=== PATIENT | female | born 1975 | race Caucasian/White ===

== ENCOUNTER 2020-08-30 09:05 | Inpatient (IN) | payer OTHER, MEDICARE ==
[2020-08-30] MEDS ORDERED: Tranexamic Acid 1,000 MG/10 ML VIAL ONE (09:20)
[2020-08-30] MEDS ORDERED: Boostrix 0.5 ML (Tdap) VIAL ONE (09:26)
[2020-08-30] MEDS ORDERED: Calcium Chloride 1 GM/10 ML Abboject SYRINGE ONE ×2 (09:40→09:57)
[2020-08-30] MEDS ORDERED: Fentanyl 100 MCG/2 ML VIAL ONE ×2 (09:56)
[2020-08-30] MEDS ORDERED: Midazolam HCl 5 mg/5 ml Vial ONE (09:56)
[2020-08-30] MEDS ORDERED: Phenylephrine 10 MG/ML VIAL ONE (09:57)
[2020-08-30] MEDS ORDERED: Ketamine 50 MG/ML (10ML VIAL) ONE (09:57)
[2020-08-30] MEDS ORDERED: Albumin 5% 0 ML ONE ×2 (09:57→09:58)
[2020-08-30] MEDS ORDERED: Sodium Bicarb 50 MEQ/50 ML Abboject 8.4% SYRINGE ONE ×2 (09:57→09:59)
[2020-08-30] MEDS ORDERED: Norepinephrine 4 MG/4 ML VIAL ONE (09:59)
[2020-08-30] MEDS ORDERED: Dextrose 5% in Water 1,000 ML IV PRN (10:06)
[2020-08-30] MEDS ORDERED: HumaLOG 300 UNITS/3 ML VIAL SC PRN (10:06)
[2020-08-30] MEDS ORDERED: Dextrose 50% Abboject 50 ML SYRINGE SLOW IVP PRN (10:06)
[2020-08-30] MEDS ORDERED: Rib Fracture Protocol IV SCH (10:15)
[2020-08-30 10:16] LABS: BHCG - Serum Negative (NEGATIVE); Pregs Control Background? CLEAR/WHITE (CLR/WHITE); Pregs Control Bar Appear? YES (CONTROL BAR)
[2020-08-30 10:21] LABS: Bacteria/HPF None Seen HPF (None Seen); Bilirubin Negative (Negative); Blood, Urine 3+ (Negative); Calcium Oxalate Crystals Rare HPF (None Seen); Clarity Turbid (Clear); Glucose, Urine (Dipstick) Normal (Negative); Ketone, Urine Negative (Negative); Leukocyte 75 Leu/uL (Negative); Nitrite Negative (Negative); Protein, Urine (Dipstick) 70 mg/dL (Neg-Trace); RBC/HPF Greater than 50 HPF (0-3); Specific Gravity, Urine 1.017 (1.002-1.036); Urobilinogen Normal mg/dL (Less than 2)
[2020-08-30 10:25] LABS: #Eosinphils 0.1 thou/uL (0.0-0.7); #Lymphocytes 1.1 thou/uL (1.20-3.40); #Monocytes 0.4 thou/uL (0.11-0.59); #Neutrophils 7.3 thou/uL (1.40-6.50); %Basophils 0.4 % (0.0-1.0); %Eosinophils 0.9 % (0.0-10.0); %Lymphocytes 12.3 % (21.0-51.0); %Monocytes 3.9 % (0.0-10.0); %Neutrophils 82.5 % (42.0-75.0); Hemoglobin 7.1 g/dL (12.0-16.0); Mean Corpuscular HGB CONC 32.7 g/dL (32.0-36.0); Mean Corpuscular Volume 88.5 fL (78.0-98.0); Mean Platelet Volume 7.5 fL (7.4-10.4); Platelet Count 220 thou/uL (130-400); RBC Distribution Width 13.4 % (11.5-14.5); Red Blood Cell (RBC) Count 2.44 mill/uL (4.20-5.40); White Blood Cell (WBC) Count 8.9 thou/uL (4.8-10.8)
[2020-08-30 10:28] LABS: ALT (SGPT) 63 U/L (8-55); AST (SGOT) 85 U/L (5-34); Alkaline Phosphatase 99 U/L (40-110); Anion Gap 14 mmol/L (10-20); BUN (Urea Nitrogen) 25 mg/dL (7.0-18.7); Bilirubin, Total 0.2 mg/dL (0.2-1.2); Calc. Creatinine Clearance 0 mL/min (70-130); Calcium 8.1 mg/dL (7.8-10.44); Carbon Dioxide 20 mmol/L (22-29); Chloride 110 mmol/L (98-107); Globulin 2.3 g/dL (2.4-3.5); Glucose 144 mg/dL (70-105); Potassium 3.5 mmol/L (3.5-5.1); Protein, Total 5.3 g/dL (6.0-8.3); Sodium 140 mmol/L (136-145)
[2020-08-30] MEDS ORDERED: CEFAZOLIN 2 GM in Premix Bag 1 BAG IVPB SCH (11:00)
[2020-08-30] MEDS ORDERED: Iopamidol-370 76% 500 ML 1 ML ONE (11:17)
[2020-08-30] MEDS ORDERED: Rocuronium Bromide 10 MG/ML (10ML VIAL) ONE (11:58)
[2020-08-30] MEDS ORDERED: PHENYLEPHRINE-NS 100 MCG/ML 10 ML SYRINGE ONE (11:58)
[2020-08-30] MEDS ORDERED: Lidocaine 1% PF 5 ML VIAL ONE (11:58)
[2020-08-30] MEDS ORDERED: Succinylcholine 200 MG/10 ml SYRINGE FS ONE (11:58)
[2020-08-30] MEDS ORDERED: PROPOFOL 200 MG/20 ML VIAL ONE (11:58)
[2020-08-30 12:05] LABS: Cocaine Metabolite Screen Not Detected (NotDetected); Medtox Reader # READER 1; Phencyclidine (PCP) Not Detected (NotDetected); THC/Cannabinoid Screen Not Detected (NotDetected)
[2020-08-30 12:06] LABS: Amphetamine Detected (NotDetected); Barbiturates Screen Not Detected (NotDetected); Benzodiazepine Screen Detected (NotDetected); Medtox Control Line Valid? VALID (VALID); Methadone Not Detected (NotDetected); Methamphetamine Detected (NotDetected); Opiate Screen Detected (NotDetected); Oxycodone Screen Not Detected (NotDetected); Tricyclic Screen Not Detected (NotDetected)
[2020-08-30] MEDS ORDERED: Morphine 4 MG/ML VIAL SLOW IVP PRN ×2 (17:03)
[2020-08-30] MEDS: Lactated Ringer's 1,000 ML IV SCH ×2 (17:21→17:33)
[2020-08-30] MEDS: CEFAZOLIN 2 GM in Premix Bag 1 BAG IVPB SCH (17:32)
[2020-08-30] MEDS ORDERED: Ketorolac Tromethamine 30 MG/ML VIAL IVP SCH (18:00)
[2020-08-30] MEDS ORDERED: Acetaminophen 650 MG Suppository PR SCH (18:00)
[2020-08-30 18:05] LABS: #Lymphocytes 0.7 thou/uL (1.20-3.40); #Monocytes 0.4 thou/uL (0.11-0.59); #Neutrophils 6.9 thou/uL (1.40-6.50); %Basophils 0.1 % (0.0-1.0); %Eosinophils 0.1 % (0.0-10.0); %Lymphocytes 8.4 % (21.0-51.0); %Monocytes 5.2 % (0.0-10.0); %Neutrophils 86.1 % (42.0-75.0); Hemoglobin 8.9 g/dL (12.0-16.0); Mean Corpuscular HGB CONC 33.8 g/dL (32.0-36.0); Mean Corpuscular Hemoglobin 30.2 pg (27.0-31.0); Mean Corpuscular Volume 89.3 fL (78.0-98.0); Mean Platelet Volume 7.7 fL (7.4-10.4); Platelet Count 126 thou/uL (130-400); RBC Distribution Width 12.6 % (11.5-14.5); Red Blood Cell (RBC) Count 2.94 mill/uL (4.20-5.40)
[2020-08-30] MEDS: Famotidine/PF 20 mg/2ml Vial SLOW IVP SCH (20:34)
[2020-08-31] MEDS: traMADol HCl 50 MG TAB PO SCH ×2 (00:08→05:19)
[2020-08-31] MEDS: CEFAZOLIN 2 GM in Premix Bag 1 BAG IVPB SCH ×3 (02:22→17:12)
[2020-08-31] MEDS: Cyclobenzaprine 10 MG TAB PO PRN (02:24)
[2020-08-31] MEDS: Lactated Ringer's 1,000 ML IV SCH ×3 (02:25→20:38)
[2020-08-31 03:47] LABS: #Lymphocytes 0.8 thou/uL (1.20-3.40); #Monocytes 0.5 thou/uL (0.11-0.59); #Neutrophils 6.6 thou/uL (1.40-6.50); %Basophils 0.1 % (0.0-1.0); %Lymphocytes 9.6 % (21.0-51.0); %Monocytes 6.2 % (0.0-10.0); Hemoglobin 7.4 g/dL (12.0-16.0); Mean Corpuscular HGB CONC 32.7 g/dL (32.0-36.0); Mean Corpuscular Hemoglobin 29.1 pg (27.0-31.0); Mean Corpuscular Volume 89.1 fL (78.0-98.0); Mean Platelet Volume 8.4 fL (7.4-10.4); Platelet Count 114 thou/uL (130-400); RBC Distribution Width 13.1 % (11.5-14.5); Red Blood Cell (RBC) Count 2.54 mill/uL (4.20-5.40); White Blood Cell (WBC) Count 7.8 thou/uL (4.8-10.8)
[2020-08-31 04:07] LABS: Anion Gap 9 mmol/L (10-20); BUN (Urea Nitrogen) 25 mg/dL (7.0-18.7); Calc. Creatinine Clearance 167 mL/min (70-130); Calcium 7.4 mg/dL (7.8-10.44); Carbon Dioxide 25 mmol/L (22-29); Chloride 110 mmol/L (98-107); Glucose 131 mg/dL (70-105); Magnesium 1.8 mg/dL (1.6-2.6); Phosphorus 3.7 mg/dL (2.3-4.7); Potassium 3.7 mmol/L (3.5-5.1); Sodium 140 mmol/L (136-145)
[2020-08-31] MEDS: Ibuprofen 800 MG TAB PO SCH ×3 (07:33→21:58)
[2020-08-31] MEDS: Famotidine/PF 20 mg/2ml Vial SLOW IVP SCH (08:45)
[2020-08-31] MEDS ORDERED: Gabapentin 300 MG CAP PO SCH (09:00)
[2020-08-31 10:22] LABS: Actual Bicarbonate (HCO3a) 21.9 mEq/L (22-28); Analyzer IN Cardio OR; Base Excess (BEa) -4.5 mEq/L (-2.0 to +3.0); CO2 Tension 47.3 mmHg (35.0-45.0); Calcium, Ionized (arterial) 1.15 mmol/L (1.12-1.30); Carboxyhemoglobin (COHb) 1.9 gm% (0.0-3.0); Hemoglobin (Hb) 6.6 g/dL (12.0-16.0); O2 Tension (PaO2), arterial 146.8 mmHg (80.0-100.0); Potassium - ABG Lab 3.42 mmol/L (3.70-5.30); pH, Arterial 7.28 (7.35-7.45)
[2020-08-31 10:23] LABS: Puncture Site Arterial Line
[2020-08-31] MEDS: HYDROcodone/Acetaminophen 10/325 mg Tablet PO PRN ×3 (11:58→20:46)
[2020-08-31 13:49] VITALS: BMI 43.0
[2020-08-31] MEDS: Gabapentin 300 MG CAP PO SCH ×2 (14:57→20:44)
[2020-08-31] MEDS ORDERED: Famotidine 20 MG TAB PO SCH (21:00)
[2020-08-31] MEDS: Senokot S 8.6-50 MG TAB PO SCH (21:58)
[2020-09-01] MEDS: HYDROcodone/Acetaminophen 10/325 mg Tablet PO PRN ×5 (00:39→20:46)
[2020-09-01] MEDS: CEFAZOLIN 2 GM in Premix Bag 1 BAG IVPB SCH ×2 (02:44→09:11)
[2020-09-01] MEDS: Lactated Ringer's 1,000 ML IV SCH ×3 (02:44→20:43)
[2020-09-01 05:41] LABS: Anion Gap 10 mmol/L (10-20); BUN (Urea Nitrogen) 16 mg/dL (7.0-18.7); Calc. Creatinine Clearance 209 mL/min (70-130); Calcium 7.4 mg/dL (7.8-10.44); Carbon Dioxide 23 mmol/L (22-29); Chloride 110 mmol/L (98-107); Glucose 111 mg/dL (70-105); Phosphorus 2.2 mg/dL (2.3-4.7); Potassium 3.7 mmol/L (3.5-5.1); Sodium 139 mmol/L (136-145)
[2020-09-01 05:45] LABS: #Lymphocytes 0.9 thou/uL (1.20-3.40); #Monocytes 0.4 thou/uL (0.11-0.59); #Neutrophils 3.8 thou/uL (1.40-6.50); %Basophils 0.7 % (0.0-1.0); %Eosinophils 0.9 % (0.0-10.0); %Lymphocytes 16.4 % (21.0-51.0); %Monocytes 8.5 % (0.0-10.0); %Neutrophils 73.5 % (42.0-75.0); Hemoglobin 5.6 g/dL (12.0-16.0); Mean Corpuscular HGB CONC 34.2 g/dL (32.0-36.0); Mean Corpuscular Hemoglobin 30.5 pg (27.0-31.0); Mean Corpuscular Volume 89.2 fL (78.0-98.0); Mean Platelet Volume 7.8 fL (7.4-10.4); Platelet Count 79 thou/uL (130-400); RBC Distribution Width 13.1 % (11.5-14.5); Red Blood Cell (RBC) Count 1.83 mill/uL (4.20-5.40); White Blood Cell (WBC) Count 5.2 thou/uL (4.8-10.8)
[2020-09-01] MEDS: Ibuprofen 800 MG TAB PO SCH (06:04)
[2020-09-01] MEDS: Ferrous Sulfate 325 MG TAB PO SCH ×2 (07:54→16:51)
[2020-09-01] MEDS: Ascorbic Acid 500 mg Chewable Tablet PO SCH ×2 (09:10→20:44)
[2020-09-01] MEDS: Gabapentin 300 MG CAP PO SCH ×3 (09:10→20:45)
[2020-09-01] MEDS: Senokot S 8.6-50 MG TAB PO SCH ×2 (09:10→20:45)
[2020-09-01 10:19] LABS: Fibrinogen 545 mg/dL (253-463); INR-International Normal Ratio 1.1; Prothrombin Time 14.1 sec (12.0-14.7)
[2020-09-01 10:20] LABS: PTT 38.2 sec (22.9-36.1)
[2020-09-01 11:00] LABS: FSP-Qualitative ABNORMAL (Normal); FSP-Semiquantitative >=5 & <20 mcg/mL (Less than 5)
[2020-09-01 15:31] LABS: Hemoglobin 7.4 g/dL (12.0-16.0)
[2020-09-01] MEDS: busPIRone HCl 10 MG TAB PO SCH (20:44)
[2020-09-01] MEDS: Topiramate 100 MG TAB PO SCH (20:45)
[2020-09-01] MEDS: Cyclobenzaprine 10 MG TAB PO PRN (20:45)
[2020-09-02] MEDS: HYDROcodone/Acetaminophen 10/325 mg Tablet PO PRN ×6 (00:36→21:41)
[2020-09-02] MEDS ORDERED: Pregabalin 75 MG CAP PO SCH (03:30)
[2020-09-02] MEDS ORDERED: Ketorolac Tromethamine 30 MG/ML VIAL IVP SCH (03:30)
[2020-09-02] MEDS: Cyclobenzaprine 10 MG TAB PO PRN ×2 (04:59→21:41)
[2020-09-02] MEDS: Lactated Ringer's 1,000 ML IV SCH ×3 (05:00→21:45)
[2020-09-02 05:48] LABS: #Lymphocytes 1.1 thou/uL (1.20-3.40); #Monocytes 0.6 thou/uL (0.11-0.59); #Neutrophils 6.2 thou/uL (1.40-6.50); %Basophils 0.2 % (0.0-1.0); %Eosinophils 0.5 % (0.0-10.0); %Lymphocytes 13.3 % (21.0-51.0); Mean Corpuscular HGB CONC 33.7 g/dL (32.0-36.0); Mean Corpuscular Hemoglobin 29.8 pg (27.0-31.0); Mean Corpuscular Volume 88.4 fL (78.0-98.0); Platelet Count 89 thou/uL (130-400); RBC Distribution Width 13.7 % (11.5-14.5); Red Blood Cell (RBC) Count 2.67 mill/uL (4.20-5.40); White Blood Cell (WBC) Count 7.9 thou/uL (4.8-10.8)
[2020-09-02 06:11] LABS: Anion Gap 12 mmol/L (10-20); BUN (Urea Nitrogen) 12 mg/dL (7.0-18.7); Calc. Creatinine Clearance 209 mL/min (70-130); Calcium 8.1 mg/dL (7.8-10.44); Carbon Dioxide 24 mmol/L (22-29); Chloride 107 mmol/L (98-107); Glucose 110 mg/dL (70-105); Potassium 3.9 mmol/L (3.5-5.1); Sodium 139 mmol/L (136-145)
[2020-09-02] MEDS ORDERED: busPIRone HCl 10 MG TAB PO SCH (09:00)
[2020-09-02] MEDS: Senokot S 8.6-50 MG TAB PO SCH ×2 (09:11→21:41)
[2020-09-02] MEDS: Topiramate 100 MG TAB PO SCH ×2 (09:12→21:41)
[2020-09-02] MEDS: Ferrous Sulfate 325 MG TAB PO SCH ×2 (09:12→17:50)
[2020-09-02] MEDS: busPIRone HCl 10 MG TAB PO SCH ×2 (09:12→21:40)
[2020-09-02] MEDS: Pregabalin 75 MG CAP PO SCH ×2 (09:12→21:40)
[2020-09-02] MEDS: Ascorbic Acid 500 mg Chewable Tablet PO SCH ×2 (10:28→21:41)
[2020-09-02] MEDS ORDERED: Fentanyl 100 MCG/2 ML VIAL ONE (11:59)
[2020-09-02] MEDS ORDERED: Lidocaine 1% PF 5 ML VIAL ONE (12:00)
[2020-09-02] MEDS ORDERED: PROPOFOL 200 MG/20 ML VIAL ONE (12:00)
[2020-09-03] MEDS: HYDROcodone/Acetaminophen 10/325 mg Tablet PO PRN ×6 (01:41→21:58)
[2020-09-03] MEDS: Lactated Ringer's 1,000 ML IV SCH (04:02)
[2020-09-03 05:36] LABS: #Eosinphils 0.1 thou/uL (0.0-0.7); #Lymphocytes 1.1 thou/uL (1.20-3.40); #Monocytes 0.7 thou/uL (0.11-0.59); #Neutrophils 4.4 thou/uL (1.40-6.50); %Basophils 0.2 % (0.0-1.0); %Eosinophils 1.5 % (0.0-10.0); %Lymphocytes 18.1 % (21.0-51.0); %Monocytes 10.9 % (0.0-10.0); %Neutrophils 69.3 % (42.0-75.0); Mean Corpuscular HGB CONC 33.6 g/dL (32.0-36.0); Mean Corpuscular Hemoglobin 30.1 pg (27.0-31.0); Mean Corpuscular Volume 89.5 fL (78.0-98.0); Mean Platelet Volume 7.8 fL (7.4-10.4); Platelet Count 119 thou/uL (130-400); Red Blood Cell (RBC) Count 2.33 mill/uL (4.20-5.40); White Blood Cell (WBC) Count 6.3 thou/uL (4.8-10.8)
[2020-09-03] MEDS: Polyethylene Glycol 3350 17 GM Packet PO SCH (09:07)
[2020-09-03] MEDS: Pregabalin 75 MG CAP PO SCH ×2 (09:08→20:59)
[2020-09-03] MEDS: busPIRone HCl 10 MG TAB PO SCH ×2 (09:10→20:58)
[2020-09-03] MEDS: Topiramate 100 MG TAB PO SCH ×2 (09:10→20:59)
[2020-09-03] MEDS: Ferrous Sulfate 325 MG TAB PO SCH ×4 (09:11→20:58)
[2020-09-03] MEDS: Ascorbic Acid 500 mg Chewable Tablet PO SCH ×2 (09:11→20:57)
[2020-09-03] MEDS: Enoxaparin Sodium 30 MG/0.3 ML SYRINGE SC SCH ×2 (09:12→20:59)
[2020-09-03] MEDS: Senokot S 8.6-50 MG TAB PO SCH ×2 (09:13→21:00)
[2020-09-03] MEDS ORDERED: Morphine 4 MG/ML VIAL ONE (10:29)
[2020-09-03] MEDS ORDERED: Morphine 4 MG/ML VIAL SLOW IVP SCH (10:30)
[2020-09-03] MEDS: Cyclobenzaprine 10 MG TAB PO PRN (13:31)
[2020-09-03 19:04] LABS: Hemoglobin 7.7 g/dL (12.0-16.0)
[2020-09-04] MEDS: HYDROcodone/Acetaminophen 10/325 mg Tablet PO PRN ×4 (01:59→17:02)
[2020-09-04] MEDS: Cyclobenzaprine 10 MG TAB PO PRN (02:00)
[2020-09-04 06:15] LABS: #Eosinphils 0.2 thou/uL (0.0-0.7); #Lymphocytes 1.1 thou/uL (1.20-3.40); #Monocytes 0.6 thou/uL (0.11-0.59); #Neutrophils 4.7 thou/uL (1.40-6.50); %Eosinophils 2.4 % (0.0-10.0); %Lymphocytes 16.9 % (21.0-51.0); %Monocytes 8.9 % (0.0-10.0); %Neutrophils 71.8 % (42.0-75.0); Hemoglobin 7.9 g/dL (12.0-16.0); Mean Corpuscular HGB CONC 31.6 g/dL (32.0-36.0); Mean Corpuscular Hemoglobin 28.3 pg (27.0-31.0); Mean Corpuscular Volume 89.7 fL (78.0-98.0); Mean Platelet Volume 8.4 fL (7.4-10.4); Platelet Count 146 thou/uL (130-400); RBC Distribution Width 14.4 % (11.5-14.5); Red Blood Cell (RBC) Count 2.78 mill/uL (4.20-5.40); White Blood Cell (WBC) Count 6.5 thou/uL (4.8-10.8)
[2020-09-04] MEDS: Ascorbic Acid 500 mg Chewable Tablet PO SCH ×2 (08:35→20:47)
[2020-09-04] MEDS: busPIRone HCl 10 MG TAB PO SCH ×3 (08:36→20:47)
[2020-09-04] MEDS: Enoxaparin Sodium 30 MG/0.3 ML SYRINGE SC SCH ×2 (08:37→20:47)
[2020-09-04] MEDS: Ferrous Sulfate 325 MG TAB PO SCH ×2 (08:38→20:46)
[2020-09-04] MEDS: Senokot S 8.6-50 MG TAB PO SCH ×2 (08:39→20:47)
[2020-09-04] MEDS: Topiramate 100 MG TAB PO SCH ×2 (08:40→20:47)
[2020-09-04] MEDS: Pregabalin 75 MG CAP PO SCH ×2 (08:40→20:46)
[2020-09-04] MEDS: Polyethylene Glycol 3350 17 GM Packet PO SCH (08:41)
[2020-09-04] MEDS ORDERED: DULoxetine 30 MG CAP PO SCH (09:00)
[2020-09-04] MEDS ORDERED: HYDROCODONE PO PRN (17:15)
[2020-09-04] MEDS ORDERED: ACETAMINOPHEN PO PRN (17:15)
[2020-09-04] MEDS: HYDROcodone/Acetaminophen 10/325 mg Tablet PO SCH ×2 (19:41→23:07)
[2020-09-04] MEDS: Methocarbamol 500 MG TAB PO PRN (21:39)
[2020-09-05] MEDS: Levothyroxine Sodium 50 MCG TAB PO SCH (05:15)
[2020-09-05] MEDS: HYDROcodone/Acetaminophen 10/325 mg Tablet PO SCH ×5 (05:15→22:35)
[2020-09-05 05:33] LABS: #Eosinphils 0.1 thou/uL (0.0-0.7); #Lymphocytes 0.9 thou/uL (1.20-3.40); #Monocytes 0.6 thou/uL (0.11-0.59); #Neutrophils 4.8 thou/uL (1.40-6.50); %Basophils 0.1 % (0.0-1.0); %Eosinophils 1.9 % (0.0-10.0); %Lymphocytes 13.3 % (21.0-51.0); %Neutrophils 74.8 % (42.0-75.0); Hemoglobin 7.7 g/dL (12.0-16.0); Mean Corpuscular HGB CONC 31.1 g/dL (32.0-36.0); Mean Corpuscular Hemoglobin 27.7 pg (27.0-31.0); Mean Corpuscular Volume 89.2 fL (78.0-98.0); Mean Platelet Volume 8.5 fL (7.4-10.4); Platelet Count 193 thou/uL (130-400); RBC Distribution Width 14.2 % (11.5-14.5); Red Blood Cell (RBC) Count 2.76 mill/uL (4.20-5.40); White Blood Cell (WBC) Count 6.4 thou/uL (4.8-10.8)
[2020-09-05] MEDS: Cyclobenzaprine 10 MG TAB PO PRN ×3 (06:26→21:20)
[2020-09-05] MEDS: Topiramate 100 MG TAB PO SCH ×2 (08:13→21:20)
[2020-09-05] MEDS: Enoxaparin Sodium 30 MG/0.3 ML SYRINGE SC SCH ×2 (08:13→21:21)
[2020-09-05] MEDS: Ascorbic Acid 500 mg Chewable Tablet PO SCH ×2 (08:13→21:21)
[2020-09-05] MEDS: Pregabalin 75 MG CAP PO SCH ×2 (08:14→21:21)
[2020-09-05] MEDS: Ferrous Sulfate 325 MG TAB PO SCH ×2 (08:14→21:21)
[2020-09-05] MEDS: busPIRone HCl 10 MG TAB PO SCH ×3 (08:14→21:20)
[2020-09-05] MEDS: Senokot S 8.6-50 MG TAB PO SCH ×3 (08:16→21:21)
[2020-09-05] MEDS: Polyethylene Glycol 3350 17 GM Packet PO SCH (08:16)
[2020-09-05] MEDS ORDERED: Venlafaxine HCl XR 75 MG CAP PO SCH (09:00)
[2020-09-05] MEDS ORDERED: Morphine 4 MG/ML VIAL SLOW IVP STA (09:34)
[2020-09-05] MEDS: Ondansetron PF 4 MG/2 ML Vial IVP PRN (09:57)
[2020-09-05] MEDS: Methocarbamol 500 MG TAB PO PRN ×2 (10:57→18:29)
[2020-09-06] MEDS: HYDROcodone/Acetaminophen 10/325 mg Tablet PO SCH ×6 (02:36→23:03)
[2020-09-06] MEDS: Levothyroxine Sodium 50 MCG TAB PO SCH (06:16)
[2020-09-06] MEDS: Polyethylene Glycol 3350 17 GM Packet PO SCH (09:04)
[2020-09-06] MEDS: Enoxaparin Sodium 30 MG/0.3 ML SYRINGE SC SCH ×2 (09:04→21:28)
[2020-09-06] MEDS: busPIRone HCl 10 MG TAB PO SCH ×2 (09:05→21:27)
[2020-09-06] MEDS: Pregabalin 75 MG CAP PO SCH ×2 (09:05→21:27)
[2020-09-06] MEDS: Senokot S 8.6-50 MG TAB PO SCH ×2 (09:06→21:28)
[2020-09-06] MEDS: Ferrous Sulfate 325 MG TAB PO SCH ×2 (09:06→21:28)
[2020-09-06] MEDS: Ascorbic Acid 500 mg Chewable Tablet PO SCH ×2 (09:06→21:26)
[2020-09-06] MEDS: Topiramate 100 MG TAB PO SCH ×2 (09:06→21:28)
[2020-09-06] MEDS: Cyclobenzaprine 10 MG TAB PO PRN ×2 (09:10→18:36)
[2020-09-06] MEDS: Methocarbamol 500 MG TAB PO PRN (12:47)
[2020-09-06] MEDS: Simethicone Chewable 80 MG TAB PO PRN ×2 (18:39→21:26)
[2020-09-07] MEDS: HYDROcodone/Acetaminophen 10/325 mg Tablet PO SCH ×6 (02:57→22:45)
[2020-09-07] MEDS: Cyclobenzaprine 10 MG TAB PO PRN ×2 (02:57→13:08)
[2020-09-07] MEDS: Levothyroxine Sodium 50 MCG TAB PO SCH (06:04)
[2020-09-07] MEDS: Ferrous Sulfate 325 MG TAB PO SCH ×2 (08:03→21:50)
[2020-09-07] MEDS: Polyethylene Glycol 3350 17 GM Packet PO SCH (08:03)
[2020-09-07] MEDS: Senokot S 8.6-50 MG TAB PO SCH ×2 (08:03→21:49)
[2020-09-07] MEDS: Ascorbic Acid 500 mg Chewable Tablet PO SCH ×2 (08:03→21:49)
[2020-09-07] MEDS: Pregabalin 75 MG CAP PO SCH ×2 (08:04→21:50)
[2020-09-07] MEDS: busPIRone HCl 10 MG TAB PO SCH ×2 (08:04→21:49)
[2020-09-07] MEDS: Topiramate 100 MG TAB PO SCH ×2 (08:04→21:50)
[2020-09-07] MEDS: Enoxaparin Sodium 30 MG/0.3 ML SYRINGE SC SCH ×2 (08:05→21:48)
[2020-09-07] MEDS: Simethicone Chewable 80 MG TAB PO PRN ×2 (18:39→22:46)
[2020-09-08] MEDS: HYDROcodone/Acetaminophen 10/325 mg Tablet PO SCH ×2 (02:51→05:51)
[2020-09-08] MEDS: Levothyroxine Sodium 50 MCG TAB PO SCH (05:52)
[2020-09-08] MEDS: Enoxaparin Sodium 30 MG/0.3 ML SYRINGE SC SCH ×2 (10:18→21:49)
[2020-09-08] MEDS: Ascorbic Acid 500 mg Chewable Tablet PO SCH ×2 (10:21→21:46)
[2020-09-08] MEDS: busPIRone HCl 10 MG TAB PO SCH ×2 (10:21→21:43)
[2020-09-08] MEDS: Senokot S 8.6-50 MG TAB PO SCH ×2 (10:22→21:46)
[2020-09-08] MEDS: Ferrous Sulfate 325 MG TAB PO SCH ×2 (10:23→21:46)
[2020-09-08] MEDS: Pregabalin 75 MG CAP PO SCH ×2 (10:24→21:43)
[2020-09-08] MEDS: Topiramate 100 MG TAB PO SCH ×2 (10:24→21:47)
[2020-09-08] MEDS: Polyethylene Glycol 3350 17 GM Packet PO SCH (10:27)
[2020-09-08] MEDS: HYDROcodone/Acetaminophen 10/325 mg Tablet PO PRN ×2 (10:58→21:42)
[2020-09-08] MEDS ORDERED: Morphine 4 MG/ML VIAL SLOW IVP SCH (11:30)
[2020-09-09] MEDS: HYDROcodone/Acetaminophen 10/325 mg Tablet PO PRN ×5 (03:53→20:37)
[2020-09-09] MEDS: Levothyroxine Sodium 50 MCG TAB PO SCH (05:45)
[2020-09-09] MEDS: Ascorbic Acid 500 mg Chewable Tablet PO SCH ×2 (09:37→20:35)
[2020-09-09] MEDS: Topiramate 100 MG TAB PO SCH ×2 (09:37→20:36)
[2020-09-09] MEDS: Ferrous Sulfate 325 MG TAB PO SCH ×2 (09:37→20:35)
[2020-09-09] MEDS: Enoxaparin Sodium 30 MG/0.3 ML SYRINGE SC SCH ×2 (09:37→20:42)
[2020-09-09] MEDS: Polyethylene Glycol 3350 17 GM Packet PO SCH (09:38)
[2020-09-09] MEDS: busPIRone HCl 10 MG TAB PO SCH ×2 (09:38→20:34)
[2020-09-09] MEDS: Pregabalin 75 MG CAP PO SCH ×2 (09:38→20:36)
[2020-09-09] MEDS: Senokot S 8.6-50 MG TAB PO SCH ×2 (09:39→20:42)
[2020-09-09] MEDS: Cyclobenzaprine 10 MG TAB PO PRN ×2 (13:01→20:45)
[2020-09-09 21:24] LABS: SARS-CoV-2 PCR by NAA Not Detected (NotDetected)
[2020-09-10] MEDS: HYDROcodone/Acetaminophen 10/325 mg Tablet PO PRN ×4 (03:38→21:01)
[2020-09-10] MEDS: Methocarbamol 500 MG TAB PO PRN (04:09)
[2020-09-10] MEDS: Levothyroxine Sodium 50 MCG TAB PO SCH (06:17)
[2020-09-10] MEDS ORDERED: Fentanyl 100 MCG/2 ML VIAL ONE ×2 (08:21→11:42)
[2020-09-10] MEDS ORDERED: SUGAMMADEX SODIUM 500 MG/5 ML VIAL ONE (08:22)
[2020-09-10] MEDS ORDERED: Famotidine/PF 20 mg/2ml Vial ONE (08:22)
[2020-09-10] MEDS ORDERED: Lidocaine 1% PF 5 ML VIAL ONE (08:56)
[2020-09-10] MEDS ORDERED: Ondansetron PF 4 MG/2 ML Vial ONE (08:56)
[2020-09-10] MEDS ORDERED: Metoclopramide HCl 10 MG/2 ML VIAL ONE (08:56)
[2020-09-10] MEDS ORDERED: PROPOFOL 200 MG/20 ML VIAL ONE (08:56)
[2020-09-10] MEDS ORDERED: Rocuronium Bromide 10 MG/ML (10ML VIAL) ONE (08:56)
[2020-09-10] MEDS ORDERED: HYDROmorphone 0.5 MG/0.5 ML SYRINGE ONE (10:55)
[2020-09-10] MEDS ORDERED: Midazolam HCl 2 mg/2 ml Vial ONE (11:05)
[2020-09-10] MEDS: Polyethylene Glycol 3350 17 GM Packet PO SCH (12:39)
[2020-09-10] MEDS: Senokot S 8.6-50 MG TAB PO SCH ×2 (12:39→21:08)
[2020-09-10] MEDS: Ascorbic Acid 500 mg Chewable Tablet PO SCH ×2 (12:39→21:08)
[2020-09-10] MEDS: Ferrous Sulfate 325 MG TAB PO SCH ×2 (12:49→21:08)
[2020-09-10] MEDS: Topiramate 100 MG TAB PO SCH ×2 (12:50→21:08)
[2020-09-10] MEDS: Cyclobenzaprine 10 MG TAB PO PRN ×2 (12:50→21:07)
[2020-09-10] MEDS: busPIRone HCl 10 MG TAB PO SCH ×2 (12:50→21:07)
[2020-09-10] MEDS: Pregabalin 75 MG CAP PO SCH ×2 (12:51→21:07)
[2020-09-10] MEDS: Enoxaparin Sodium 30 MG/0.3 ML SYRINGE SC SCH ×2 (12:54→21:07)
[2020-09-10] MEDS: Ondansetron PF 4 MG/2 ML Vial IVP PRN (21:24)
[2020-09-11] MEDS: Simethicone Chewable 80 MG TAB PO PRN (00:46)
[2020-09-11] MEDS: HYDROcodone/Acetaminophen 10/325 mg Tablet PO PRN ×6 (00:46→22:19)
[2020-09-11] MEDS: Levothyroxine Sodium 50 MCG TAB PO SCH (05:58)
[2020-09-11] MEDS: Senokot S 8.6-50 MG TAB PO SCH ×2 (08:39→21:38)
[2020-09-11] MEDS: Polyethylene Glycol 3350 17 GM Packet PO SCH (08:39)
[2020-09-11] MEDS: Topiramate 100 MG TAB PO SCH ×2 (08:40→21:38)
[2020-09-11] MEDS: busPIRone HCl 10 MG TAB PO SCH ×2 (08:40→21:36)
[2020-09-11] MEDS: Pregabalin 75 MG CAP PO SCH ×2 (08:40→21:38)
[2020-09-11] MEDS: Ferrous Sulfate 325 MG TAB PO SCH ×2 (08:40→21:38)
[2020-09-11] MEDS: Ascorbic Acid 500 mg Chewable Tablet PO SCH ×2 (08:40→21:37)
[2020-09-11] MEDS: tiZANidine HCl 4 MG TAB PO SCH ×4 (08:41→21:39)
[2020-09-11] MEDS: Enoxaparin Sodium 30 MG/0.3 ML SYRINGE SC SCH ×2 (08:41→21:39)
[2020-09-11] MEDS: hydrOXYzine Pamoate 25 mg Capsule PO PRN ×4 (08:41→21:42)
[2020-09-12] MEDS: hydrOXYzine Pamoate 25 mg Capsule PO PRN ×6 (01:35→21:19)
[2020-09-12] MEDS: tiZANidine HCl 4 MG TAB PO SCH ×6 (01:35→21:43)
[2020-09-12] MEDS: HYDROcodone/Acetaminophen 10/325 mg Tablet PO PRN ×6 (02:12→22:21)
[2020-09-12] MEDS: Simethicone Chewable 80 MG TAB PO PRN ×3 (05:16→16:54)
[2020-09-12] MEDS: Levothyroxine Sodium 50 MCG TAB PO SCH (06:08)
[2020-09-12] MEDS: Enoxaparin Sodium 30 MG/0.3 ML SYRINGE SC SCH ×2 (09:26→21:25)
[2020-09-12] MEDS: Senokot S 8.6-50 MG TAB PO SCH ×2 (09:26→21:25)
[2020-09-12] MEDS: Pregabalin 75 MG CAP PO SCH ×2 (09:26→21:20)
[2020-09-12] MEDS: Topiramate 100 MG TAB PO SCH ×2 (09:27→21:20)
[2020-09-12] MEDS: Ferrous Sulfate 325 MG TAB PO SCH ×2 (09:27→21:25)
[2020-09-12] MEDS: busPIRone HCl 10 MG TAB PO SCH ×2 (09:28→21:24)
[2020-09-12] MEDS: Ascorbic Acid 500 mg Chewable Tablet PO SCH ×2 (09:28→21:20)
[2020-09-12] MEDS: Polyethylene Glycol 3350 17 GM Packet PO SCH (09:29)
[2020-09-13] MEDS: hydrOXYzine Pamoate 25 mg Capsule PO PRN ×4 (01:41→17:13)
[2020-09-13] MEDS: tiZANidine HCl 4 MG TAB PO SCH ×6 (01:41→20:19)
[2020-09-13] MEDS: HYDROcodone/Acetaminophen 10/325 mg Tablet PO PRN ×3 (02:51→20:19)
[2020-09-13] MEDS: Levothyroxine Sodium 50 MCG TAB PO SCH (05:42)
[2020-09-13] MEDS: Ferrous Sulfate 325 MG TAB PO SCH ×2 (08:27→20:20)
[2020-09-13] MEDS: Pregabalin 75 MG CAP PO SCH ×2 (08:27→20:19)
[2020-09-13] MEDS: Topiramate 100 MG TAB PO SCH ×2 (08:28→20:20)
[2020-09-13] MEDS: busPIRone HCl 10 MG TAB PO SCH ×2 (08:28→20:19)
[2020-09-13] MEDS: Polyethylene Glycol 3350 17 GM Packet PO SCH (08:33)
[2020-09-13] MEDS: Ascorbic Acid 500 mg Chewable Tablet PO SCH ×2 (08:33→20:20)
[2020-09-13] MEDS: Senokot S 8.6-50 MG TAB PO SCH ×2 (08:34→20:20)
[2020-09-13] MEDS: Enoxaparin Sodium 30 MG/0.3 ML SYRINGE SC SCH ×2 (11:25→20:19)
[2020-09-13] MEDS: Simethicone Chewable 80 MG TAB PO PRN (21:33)
[2020-09-14] MEDS: HYDROcodone/Acetaminophen 10/325 mg Tablet PO PRN ×6 (00:34→21:02)
[2020-09-14] MEDS: tiZANidine HCl 4 MG TAB PO SCH ×6 (00:34→21:01)
[2020-09-14] MEDS: Levothyroxine Sodium 50 MCG TAB PO SCH (06:01)
[2020-09-14] MEDS: Ferrous Sulfate 325 MG TAB PO SCH ×2 (08:46→21:01)
[2020-09-14] MEDS: Ascorbic Acid 500 mg Chewable Tablet PO SCH ×2 (08:46→21:03)
[2020-09-14] MEDS: Topiramate 100 MG TAB PO SCH ×2 (08:47→21:02)
[2020-09-14] MEDS: busPIRone HCl 10 MG TAB PO SCH ×2 (08:47→21:01)
[2020-09-14] MEDS: Pregabalin 75 MG CAP PO SCH ×2 (08:48→21:02)
[2020-09-14] MEDS: Enoxaparin Sodium 30 MG/0.3 ML SYRINGE SC SCH ×2 (08:48→21:03)
[2020-09-14] MEDS: Polyethylene Glycol 3350 17 GM Packet PO SCH (08:56)
[2020-09-14] MEDS: Senokot S 8.6-50 MG TAB PO SCH ×2 (08:56→21:01)
[2020-09-14] MEDS: hydrOXYzine Pamoate 25 mg Capsule PO PRN ×2 (12:57→23:39)
[2020-09-14] MEDS: Methocarbamol 500 MG TAB PO PRN (23:42)
[2020-09-15] MEDS: HYDROcodone/Acetaminophen 10/325 mg Tablet PO PRN ×4 (01:46→13:37)
[2020-09-15] MEDS: tiZANidine HCl 4 MG TAB PO SCH ×2 (01:46→06:09)
[2020-09-15] MEDS: Levothyroxine Sodium 50 MCG TAB PO SCH (06:09)
[2020-09-15] MEDS: Ascorbic Acid 500 mg Chewable Tablet PO SCH (08:36)
[2020-09-15] MEDS: Polyethylene Glycol 3350 17 GM Packet PO SCH (08:36)
[2020-09-15] MEDS: hydrOXYzine Pamoate 25 mg Capsule PO PRN ×2 (09:54→13:37)
[2020-09-15] MEDS: tiZANidine HCl 4 MG TAB PO PRN ×2 (09:55→13:37)
[2020-09-15] MEDS: Pregabalin 75 MG CAP PO SCH (09:55)
[2020-09-15] MEDS: Topiramate 100 MG TAB PO SCH (09:55)
[2020-09-15] MEDS: busPIRone HCl 10 MG TAB PO SCH (09:55)
[2020-09-15] MEDS: Enoxaparin Sodium 30 MG/0.3 ML SYRINGE SC SCH (09:57)
[2020-09-15] MEDS: Ferrous Sulfate 325 MG TAB PO SCH (09:57)
[2020-09-15] MEDS: Senokot S 8.6-50 MG TAB PO SCH (09:59)
[2020-09-15 11:55] VITALS: BP 110/64; TEMP 98.5
== END 2020-09-15 14:30 | DRG 480 ==
LOC: ERS 09:05 → EDSEX 09:05 → SDC 11:56 → CCU 16:43 → SURG A 09-01 00:44
PROVIDERS: ADMIT Surgery; ATTEND Surgery
PROC: 30233K1 Transfusion of Nonautologous Frozen Plasma into Peripheral Vein, Percutaneous Approach (ICD-10-PCS; principal; 2020-08-30)
PROC: 0QSB04Z Reposition Right Lower Femur with Internal Fixation Device, Open Approach (ICD-10-PCS; 2020-08-30)
PROC: 0JQ00ZZ Repair Scalp Subcutaneous Tissue and Fascia, Open Approach (ICD-10-PCS; 2020-08-30)
PROC: 30233N1 Transfusion of Nonautologous Red Blood Cells into Peripheral Vein, Percutaneous Approach (ICD-10-PCS; 2020-08-30)
PROC: 05H633Z Insertion of Infusion Device into Left Subclavian Vein, Percutaneous Approach (ICD-10-PCS; 2020-08-30)
PROC: 0KB60ZZ Excision of Left Shoulder Muscle, Open Approach (ICD-10-PCS; 2020-09-10)
PROC: 0HQCXZZ Repair Left Upper Arm Skin, External Approach (ICD-10-PCS; 2020-09-10)
DX: S72.401A Unspecified fracture of lower end of right femur, initial encounter for closed fracture (principal); R57.8 Other shock; S22.039A Unspecified fracture of third thoracic vertebra, initial encounter for closed fracture; S22.43XA Multiple fractures of ribs, bilateral, initial encounter for closed fracture; S22.019A Unspecified fracture of first thoracic vertebra, initial encounter for closed fracture; S22.029A Unspecified fracture of second thoracic vertebra, initial encounter for closed fracture; S12.9XXA Fracture of neck, unspecified, initial encounter; J93.9 Pneumothorax, unspecified; Z68.41 Body mass index [BMI] 40.0-44.9, adult; S81.812A Laceration without foreign body, left lower leg, initial encounter; D64.9 Anemia, unspecified; E66.01 Morbid (severe) obesity due to excess calories; V89.2XXA Person injured in unspecified motor-vehicle accident, traffic, initial encounter
CPT/HCPCS: 36415; 36416; 36430; 36556; 36620; 51702; 70450; 71045; 71260; 72125; 72141; 72170; 74177; 76000; 80048; 80053; 80306; 80307; 81003; 81015; 82805; 83605; 83735; 84100; 84703; 85025; 85362; 85384; 85610; 85730; 86850; 86870; 86900; 86901; 86922; 87086; 87635; 90471; 90715; 94640; 94760; 96365; 96375; 99292; C1713; G0390; J0690; J1170; J1650; J1885; J2250; J2270; J2370; J2405; J2704; J2765; J3010; J7030; J7620; P9016; P9045; P9048; Q0177; Q9967; S0028; U0003; U0005